=== PATIENT | male | born 1955 | race Two or more races ===

== ENCOUNTER 2019-08-13 11:12 | Emergency (ER) | payer OTHER ==
[~2019-08-13] VITALS: Ht 165.1 cm; Wt 72.6 kg
[2019-08-13] MEDS ORDERED: SODIUM CHLORIDE 0.9% 1,000 ML IV ONE (11:28)
[2019-08-13] MEDS ORDERED: ONDANSETRON HCL 4 MG/2 ML VIAL IV ONE (11:30)
[2019-08-13] MEDS ORDERED: LORazepam 2MG/ML-1ML VIAL IV ONE (11:30)
[2019-08-13 12:08] LABS: Basophils # (auto) 0 uL; Basophils % (auto) 0.5 % (0.0-2.0); Eosinophils # (auto) 0 uL; Eosinophils % (auto) 0.1 % (0.0-7.0); Hematocrit 46.9 % (41.0-53.0); Hemoglobin 16.1 g/dL (13.5-17.5); Lymphocytes # (auto) 1.2 uL; Lymphocytes % (auto) 14.9 % (10.0-50.0); Mean Corpuscular Hemoglobin 31.2 pg (28.0-32.0); Mean Corpuscular Hgb Conc. 34.3 g/dL (32.0-36.0); Mean Corpuscular Volume 91.1 fL (80.0-100.0); Monocytes # (auto) 0.5 uL; Monocytes % (auto) 6.2 % (0.0-12.0); Neutrophils # (auto) 6.1 uL; Neutrophils % (auto) 78.3 % (37.0-80.0); Nucleated Red Blood Cells % 0.1 %; Platelet Count (auto) 230 10^3/uL (140-450); Red Blood Cells 5.15 10^6/uL (4.5-5.90); Red Cell Distribution Width 13.7 % (11.8-14.3); White Blood Cell 7.7 10^3/uL (4.4-10.8)
[2019-08-13 12:19] LABS: Alanine Aminotransferase 73 U/L (16-61); Albumin 3.7 g/dL (3.4-5.0); Anion Gap 15 (5-15); Aspartate Aminotransferase 95 U/L (15-37); BUN/Creatinine Ratio 19.8; Blood Urea Nitrogen 18 mg/dL (7-18); Calcium 8.7 mg/dL (8.5-10.1); Carbon Dioxide 20 mmol/L (21-32); Chloride 102 mmol/L (98-107); GFR African American 107 mL/min; GFR Non-African American 89 mL/min; Glucose 126 mg/dL (74-106); Potassium 3.9 mmol/L (3.5-5.1); Sodium 137 mmol/L (136-145)
[2019-08-13 12:24] LABS: Alkaline Phosphatase 66 U/L (45-117); Bilirubin, Total 0.7 mg/dL (0.2-1.0); Total Protein 7.9 g/dL (6.4-8.2)
[2019-08-13 14:01] VITALS: BP 176/90
== END 2019-08-13 14:14 | disposition home or self-care (01) ==
LOC: ER 11:16
DX: F10.239 Alcohol dependence with withdrawal, unspecified (principal); R11.2 Nausea with vomiting, unspecified; Y90.0 Blood alcohol level of less than 20 mg/100 ml
CPT/HCPCS: 36415; 80053; 80320; 84484; 85025; 93005; 94761; 96361; 96374; 96375; 99284; J2060; J2405; J7030

== ENCOUNTER 2021-04-08 20:03 | Inpatient (IN) | payer OTHER ==
[2021-04-07 20:40] VITALS: BP 165/98
[~2021-04-08] VITALS: Ht 165.1 cm; Wt 78.4 kg
[2021-04-08] MEDS ORDERED: NORPTMEDS CO (20:59)
[2021-04-08 22:00] VITALS: BP 165/98
[2021-04-08] MEDS ORDERED: ONDANSETRON HCL 4 MG/2 ML VIAL IV PRN (22:45)
[2021-04-08] MEDS ORDERED: NITROGLYCERIN 0.4 MG SL TAB SL PRN (22:45)
[2021-04-08] MEDS ORDERED: MORPHINE SULF INJ 2 MG/ML SYRINGE 1ML IV PRN (22:45)
[2021-04-08] MEDS ORDERED: chlordiazePOXIDE HCL 25 MG CAP PO PRN (22:45)
[2021-04-08] MEDS ORDERED: TEMAZEPAM 15 MG CAP PO PRN (22:45)
[2021-04-08] MEDS: cloNIDine HCL 0.1 MG TAB PO PRN (22:51)
[2021-04-08 23:03] LABS: Basophils # (auto) 0 10 ^3/uL (0-0.2); Basophils % (auto) 0.4 % (0.0-2.0); Eosinophils # (auto) 0.1 10 ^3/uL (0-0.8); Eosinophils % (auto) 0.9 % (0.0-7.0); Hematocrit 38.2 % (41.0-53.0); Hemoglobin 13.3 g/dL (13.5-17.5); Lymphocytes # (auto) 1.3 10 ^3/uL (0.4-5.4); Lymphocytes % (auto) 21.2 % (10.0-50.0); Mean Corpuscular Hemoglobin 31.2 pg (28.0-32.0); Mean Corpuscular Hgb Conc. 34.9 g/dL (32.0-36.0); Mean Corpuscular Volume 89.3 fL (80.0-100.0); Monocytes # (auto) 0.5 10 ^3/uL (0-1.3); Monocytes % (auto) 8.4 % (0.0-12.0); Neutrophils # (auto) 4.1 10 ^3/uL (1.6-8.6); Neutrophils % (auto) 69.1 % (37.0-80.0); Nucleated Red Blood Cells % 0.1 %; Platelet Count (auto) 174 10^3/uL (140-450); Red Blood Cells 4.28 10^6/uL (4.5-5.90); Red Cell Distribution Width 13.6 % (11.8-14.3); White Blood Cell 5.9 10^3/uL (4.4-10.8)
[2021-04-08 23:26] LABS: Alanine Aminotransferase 38 U/L (16-61); Albumin 3.2 g/dL (3.4-5.0); Anion Gap 6 (5-15); Aspartate Aminotransferase 37 U/L (15-37); Blood Urea Nitrogen 23 mg/dL (7-18); Calcium 8.5 mg/dL (8.5-10.1); Carbon Dioxide 26 mmol/L (21-32); Chloride 106 mmol/L (98-107); GFR African American 100 mL/min; GFR Non-African American 83 mL/min; Glucose 113 mg/dL (74-106); Potassium 3.5 mmol/L (3.5-5.1); Sodium 138 mmol/L (136-145)
[2021-04-08 23:30] LABS: Alkaline Phosphatase 66 U/L (45-117); Bilirubin, Total 0.6 mg/dL (0.2-1.0); Total Protein 7.1 g/dL (6.4-8.2)
[2021-04-08 23:41] LABS: Urine Bacteria FEW /hpf (None Seen); Urine Blood 1+ /uL (Negative); Urine Mucus FEW (None Seen); Urine Specific Gravity 1.023 (1.001-1.035); Urine WBC 1 /hpf (0 - 3)
[2021-04-09 05:00] VITALS: BP 139/86
[2021-04-09 08:50] VITALS: BP 202/122
[2021-04-09] MEDS: cloNIDine HCL 0.1 MG TAB PO PRN (09:07)
[2021-04-09] MEDS ORDERED: LISINOPRIL 10 MG TAB PO SCH (10:00)
[2021-04-09] MEDS: FAMOTIDINE 20 MG TAB PO SCH ×2 (10:30→21:52)
[2021-04-09] MEDS ORDERED: amLODIPine BESYLATE 5 MG TAB PO ONE (11:00)
[2021-04-09] MEDS ORDERED: HCTZ 25 MG TAB PO ONE (11:00)
[2021-04-09] MEDS ORDERED: cloNIDine HCL 0.1 MG TAB PO ONE (11:00)
[2021-04-09 12:43] VITALS: BP 163/101
[2021-04-09] MEDS: FOLIC ACID 1 MG, MULTIPLE VITAMIN 10 ML, MAGNESIUM SULF SDV 50% 8 MEQ, THIAMINE INJ 100... INJ SCH ×5 (14:21)
[2021-04-09 14:28] VITALS: BP 141/84
[2021-04-09 17:00] VITALS: BP 153/84
[2021-04-09] MEDS ORDERED: PANTOPRAZOLE 40 MG TAB PO ONE (19:30)
[2021-04-09] MEDS: SUCRALFATE 1 GM TAB PO SCH (21:52)
[2021-04-09 22:00] VITALS: BP 143/83
[2021-04-10 05:00] VITALS: BP 146/82
[2021-04-10] MEDS: SUCRALFATE 1 GM TAB PO SCH ×2 (06:13→15:10)
[2021-04-10 07:12] LABS: Basophils # (auto) 0 10 ^3/uL (0-0.2); Basophils % (auto) 0.2 % (0.0-2.0); Eosinophils # (auto) 0.1 10 ^3/uL (0-0.8); Eosinophils % (auto) 0.9 % (0.0-7.0); Hematocrit 38.4 % (41.0-53.0); Hemoglobin 13.2 g/dL (13.5-17.5); Lymphocytes # (auto) 1.4 10 ^3/uL (0.4-5.4); Lymphocytes % (auto) 24.3 % (10.0-50.0); Mean Corpuscular Hemoglobin 30.8 pg (28.0-32.0); Mean Corpuscular Hgb Conc. 34.4 g/dL (32.0-36.0); Mean Corpuscular Volume 89.5 fL (80.0-100.0); Monocytes # (auto) 0.6 10 ^3/uL (0-1.3); Monocytes % (auto) 9.8 % (0.0-12.0); Neutrophils # (auto) 3.8 10 ^3/uL (1.6-8.6); Neutrophils % (auto) 64.8 % (37.0-80.0); Nucleated Red Blood Cells % 0.1 %; Platelet Count (auto) 170 10^3/uL (140-450); Red Blood Cells 4.29 10^6/uL (4.5-5.90); Red Cell Distribution Width 13.6 % (11.8-14.3); White Blood Cell 5.9 10^3/uL (4.4-10.8)
[2021-04-10 07:25] LABS: Albumin 3.1 g/dL (3.4-5.0); Calcium 8.5 mg/dL (8.5-10.1); Potassium 3.6 mmol/L (3.5-5.1)
[2021-04-10 07:28] LABS: BUN/Creatinine Ratio 19.1; Bilirubin, Total 0.5 mg/dL (0.2-1.0); Total Protein 6.9 g/dL (6.4-8.2)
[2021-04-10 08:40] VITALS: BP 161/104
[2021-04-10 09:00] VITALS: BP 161/100
[2021-04-10] MEDS: FAMOTIDINE 20 MG TAB PO SCH (09:18)
[2021-04-10] MEDS ORDERED: PANTOPRAZOLE 40 MG TAB PO SCH (10:00)
[2021-04-10] MEDS ORDERED: LISINOPRIL 20 MG TAB PO SCH (10:00)
[2021-04-10] MEDS ORDERED: HCTZ 25 MG TAB PO SCH (10:00)
[2021-04-10] MEDS ORDERED: LISI20TA28 PO (11:31)
[2021-04-10] MEDS ORDERED: HYDR12.55 PO (11:32)
[2021-04-10] MEDS ORDERED: AMLO-489 PO (11:33)
[2021-04-10] MEDS: FOLIC ACID 1 MG, MULTIPLE VITAMIN 10 ML, MAGNESIUM SULF SDV 50% 8 MEQ, THIAMINE INJ 100... INJ SCH ×5 (12:00)
[2021-04-10] MEDS ORDERED: THIA100T5 PO (12:11)
[2021-04-10 12:30] VITALS: BP 157/102
[2021-04-10 16:05] VITALS: BP 150/98
== END 2021-04-10 16:45 | disposition home or self-care (01) | DRG 305 ==
LOC: TELE-WESTW 20:35 → INTOOBSV 20:35 → OBSVTOIN 04-09 17:18
PROVIDERS: ADMIT Nurse Practitioner; ATTEND Internal Medicine Nephrology
DX: I16.0 Hypertensive urgency (principal); F10.239 Alcohol dependence with withdrawal, unspecified; E44.0 Moderate protein-calorie malnutrition; I10 Essential (primary) hypertension; I49.9 Cardiac arrhythmia, unspecified; F41.9 Anxiety disorder, unspecified; Z20.822 Contact with and (suspected) exposure to COVID-19; Z68.27 Body mass index [BMI] 27.0-27.9, adult
CPT/HCPCS: 36415; 80053; 81001; 84484; 85025; 87081; 87426; G0378

== ENCOUNTER 2021-05-12 22:52 | Inpatient (IN) | payer OTHER ==
[~2021-05-12] VITALS: Ht 172.7 cm; Wt 72.7 kg
[~2021-05-12 22:52] MED LIST: AMLO-489 PO; HYDR12.55 PO; LISI20TA28 PO; NORPTMEDS CO
[2021-05-13 00:35] LABS: Basophils # (auto) 0 10 ^3/uL (0-0.2); Basophils % (auto) 0.2 % (0.0-2.0); Eosinophils # (auto) 0 10 ^3/uL (0-0.8); Hematocrit 48.1 % (41.0-53.0); Hemoglobin 16.3 g/dL (13.5-17.5); Lymphocytes # (auto) 1.8 10 ^3/uL (0.4-5.4); Lymphocytes % (auto) 23.6 % (10.0-50.0); Mean Corpuscular Hemoglobin 30.7 pg (28.0-32.0); Mean Corpuscular Volume 90.3 fL (80.0-100.0); Monocytes # (auto) 0.4 10 ^3/uL (0-1.3); Monocytes % (auto) 5.1 % (0.0-12.0); Neutrophils # (auto) 5.4 10 ^3/uL (1.6-8.6); Neutrophils % (auto) 71.1 % (37.0-80.0); Nucleated Red Blood Cells % 0.2 %; Red Blood Cells 5.32 10^6/uL (4.5-5.90); Red Cell Distribution Width 14.2 % (11.8-14.3); White Blood Cell 7.6 10^3/uL (4.4-10.8)
[2021-05-13 00:54] LABS: Chloride 98 mmol/L (98-107); Potassium 4.7 mmol/L (3.5-5.1); Sodium 133 mmol/L (136-145)
[2021-05-13 00:58] LABS: Alanine Aminotransferase 40 U/L (16-61); Anion Gap 21 (5-15); Aspartate Aminotransferase 41 U/L (15-37); BUN/Creatinine Ratio 13.9; Blood Urea Nitrogen 15 mg/dL (7-18); Calcium 8.6 mg/dL (8.5-10.1); Carbon Dioxide 14 mmol/L (21-32); GFR African American 87 mL/min; GFR Non-African American 72 mL/min; Glucose 76 mg/dL (74-106)
[2021-05-13 01:02] LABS: Alkaline Phosphatase 75 U/L (45-117); Bilirubin, Total 0.6 mg/dL (0.2-1.0); Total Protein 8.5 g/dL (6.4-8.2)
[2021-05-13] MEDS ORDERED: LORazepam 2MG/ML-1ML VIAL IV ONE (03:00)
[2021-05-13] MEDS ORDERED: FAMOTIDINE (10MG/ML) 2ML VL IV ONE (03:00)
[2021-05-13] MEDS ORDERED: ONDANSETRON HCL 4 MG/2 ML VIAL IV ONE (03:30)
[2021-05-13] MEDS ORDERED: MORPHINE SULF INJ 2 MG/ML SYRINGE 1ML IV PRN (05:30)
[2021-05-13] MEDS ORDERED: TEMAZEPAM 15 MG CAP PO PRN (05:30)
[2021-05-13] MEDS ORDERED: NITROGLYCERIN 0.4 MG SL TAB SL PRN (05:30)
[2021-05-13] MEDS ORDERED: ONDANSETRON HCL 4 MG/2 ML VIAL IV PRN (05:30)
[2021-05-13] MEDS: chlordiazePOXIDE HCL 25 MG CAP PO PRN ×3 (06:11→22:49)
[2021-05-13] MEDS ORDERED: AMMONIA 0.33 ML INHALANT IN ONE (11:26)
[2021-05-13] MEDS: FOLIC ACID 1 MG, MULTIPLE VITAMIN 10 ML, MAGNESIUM SULF SDV 50% 8 MEQ, THIAMINE INJ 100... INJ SCH ×5 (12:00)
[2021-05-13] MEDS: LISINOPRIL 10 MG TAB PO SCH (13:30)
[2021-05-13] MEDS: HCTZ 25 MG TAB PO SCH (13:30)
[2021-05-13] MEDS: PANTOPRAZOLE 40 MG TAB PO SCH (13:30)
[2021-05-13] MEDS: amLODIPine BESYLATE 5 MG TAB PO SCH (13:30)
[2021-05-13] MEDS ORDERED: MULT-1018 PO (14:46)
[2021-05-13] MEDS ORDERED: UBIQ100C6 PO (14:46)
[2021-05-13 14:57] VITALS: BP 155/82
[2021-05-13 17:00] VITALS: BP 140/89
[2021-05-13] MEDS: cloNIDine HCL 0.1 MG TAB PO PRN (21:59)
[2021-05-13 22:00] VITALS: BP 154/88
[2021-05-14 05:00] VITALS: BP 155/87
[2021-05-14 06:25] LABS: Basophils # (auto) 0 10 ^3/uL (0-0.2); Basophils % (auto) 0.2 % (0.0-2.0); Eosinophils # (auto) 0 10 ^3/uL (0-0.8); Eosinophils % (auto) 0.6 % (0.0-7.0); Hematocrit 38.8 % (41.0-53.0); Hemoglobin 13.6 g/dL (13.5-17.5); Lymphocytes # (auto) 1.3 10 ^3/uL (0.4-5.4); Lymphocytes % (auto) 22.7 % (10.0-50.0); Mean Corpuscular Hemoglobin 31.8 pg (28.0-32.0); Mean Corpuscular Hgb Conc. 35.1 g/dL (32.0-36.0); Mean Corpuscular Volume 90.5 fL (80.0-100.0); Monocytes # (auto) 0.5 10 ^3/uL (0-1.3); Monocytes % (auto) 8.8 % (0.0-12.0); Neutrophils # (auto) 3.8 10 ^3/uL (1.6-8.6); Neutrophils % (auto) 67.7 % (37.0-80.0); Red Blood Cells 4.29 10^6/uL (4.5-5.90); Red Cell Distribution Width 14.2 % (11.8-14.3); White Blood Cell 5.6 10^3/uL (4.4-10.8)
[2021-05-14] MEDS: chlordiazePOXIDE HCL 25 MG CAP PO PRN (06:34)
[2021-05-14] MEDS: cloNIDine HCL 0.1 MG TAB PO PRN ×2 (06:34→13:54)
[2021-05-14 07:19] LABS: BUN/Creatinine Ratio 26.2; Potassium 3.5 mmol/L (3.5-5.1)
[2021-05-14 09:00] VITALS: BP 133/85
[2021-05-14] MEDS: LISINOPRIL 10 MG TAB PO SCH (10:00)
[2021-05-14] MEDS: HCTZ 25 MG TAB PO SCH (10:00)
[2021-05-14] MEDS: amLODIPine BESYLATE 5 MG TAB PO SCH (10:00)
[2021-05-14] MEDS: PANTOPRAZOLE 40 MG TAB PO SCH (10:16)
[2021-05-14] MEDS: FOLIC ACID 1 MG, MULTIPLE VITAMIN 10 ML, MAGNESIUM SULF SDV 50% 8 MEQ, THIAMINE INJ 100... INJ SCH ×5 (12:00)
[2021-05-14 13:00] VITALS: BP 139/89
== END 2021-05-14 18:50 | disposition home or self-care (01) | DRG 897 ==
LOC: ER 22:52 → TELE 05-13 05:22 → TELE-WESTW 05-13 14:40
PROVIDERS: ADMIT Nurse Practitioner; ATTEND Internal Medicine
DX: F10.231 Alcohol dependence with withdrawal delirium (principal); R91.8 Other nonspecific abnormal finding of lung field; I10 Essential (primary) hypertension; F41.9 Anxiety disorder, unspecified; Z20.822 Contact with and (suspected) exposure to COVID-19; Z91.19 Patient's noncompliance with other medical treatment and regimen; Z82.49 Family history of ischemic heart disease and other diseases of the circulatory system; Z83.3 Family history of diabetes mellitus; Z71.41 Alcohol abuse counseling and surveillance of alcoholic
CPT/HCPCS: 36415; 71250; 80048; 80053; 83880; 84484; 85025; 87426; 93005; 96365; 96366; 96375; G0378; J2405; J3490

== ENCOUNTER 2022-09-24 16:06 | Inpatient (IN) | payer OTHER ==
[~2022-09-24] VITALS: Ht 165.1 cm; Wt 73.7 kg
[~2022-09-24 16:06] MED LIST changes: -AMLO-489 PO; -HYDR12.55 PO; -LISI20TA28 PO; +MULT-1018 PO; -NORPTMEDS CO; +UBIQ100C6 PO
[2022-09-24 17:31] LABS: Basophils # (auto) 0.2 10 ^3/uL (0-0.2); Basophils % (auto) 2.2 % (0.0-2.0); Eosinophils # (auto) 0 10 ^3/uL (0-0.8); Eosinophils % (auto) 0.5 % (0.0-7.0); Hematocrit 42.8 % (41.0-53.0); Hemoglobin 14.6 g/dL (13.5-17.5); Lymphocytes # (auto) 0.7 10 ^3/uL (0.4-5.4); Lymphocytes % (auto) 7.7 % (10.0-50.0); Mean Corpuscular Hemoglobin 30.2 pg (28.0-32.0); Mean Corpuscular Volume 88.6 fL (80.0-100.0); Monocytes # (auto) 0.6 10 ^3/uL (0-1.3); Monocytes % (auto) 6.3 % (0.0-12.0); Neutrophils # (auto) 7.9 10 ^3/uL (1.6-8.6); Neutrophils % (auto) 83.3 % (37.0-80.0); Nucleated Red Blood Cells % 0.1 %; Red Blood Cells 4.83 10^6/uL (4.5-5.90); Red Cell Distribution Width 13.7 % (11.8-14.3); White Blood Cell 9.5 10^3/uL (4.4-10.8)
[2022-09-24 17:55] LABS: Albumin 3.9 g/dL (3.4-5.0); BUN/Creatinine Ratio 20.9; Potassium 4.9 mmol/L (3.5-5.1); Total Protein 7.6 g/dL (6.4-8.2)
[2022-09-24 17:56] LABS: Bilirubin, Total 1.4 mg/dL (0.2-1.0)
[2022-09-24] MEDS ORDERED: FAMOTIDINE (10MG/ML) 2ML VL IV ONE (18:00)
[2022-09-24] MEDS ORDERED: LORazepam 2MG/ML-1ML VIAL IV ONE ×2 (18:00→20:00)
[2022-09-24] MEDS ORDERED: SODIUM CHLORIDE 0.9% 1,000 ML IV ONE (18:00)
[2022-09-24 19:10] LABS: Blood Alcohol < 3.0 mg/dL (0-5); Lipase 132 U/L (73-393); Magnesium 2.7 mg/dL (1.6-2.6); Phosphorus 1.6 mg/dL (2.5-4.90)
[2022-09-24] MEDS: FOLIC ACID 1 MG, MULTIPLE VITAMIN 10 ML, MAGNESIUM SULF SDV 50% 8 MEQ, THIAMINE INJ 100... INJ SCH ×5 (21:36)
[2022-09-24 21:54] LABS: Urine WBC None Seen /hpf (0 - 3)
[2022-09-24] MEDS ORDERED: HYDROcodone-ACET 5/325MG TAB PO PRN (22:00)
[2022-09-24] MEDS ORDERED: DEXTROSE (50%) 50ML SYRG IV PRN (22:00)
[2022-09-24] MEDS ORDERED: ONDANSETRON HCL 4 MG/2 ML VIAL IV PRN (22:00)
[2022-09-24] MEDS ORDERED: DOCUSATE SOD 100 MG CAP PO PRN (22:00)
[2022-09-24] MEDS ORDERED: ACETAMINOPHEN 325 MG TAB PO PRN (22:00)
[2022-09-24] MEDS ORDERED: IOHEXOL 300 MG/ML 100ML BOTTLE IJ ONE (22:06)
[2022-09-24 22:16] LABS: Urine Bacteria FEW /hpf (None Seen); Urine Blood 1+ /uL (Negative); Urine Specific Gravity 1.008 (1.001-1.035)
[2022-09-24 22:45] LABS: Amphetamine Screen, Urine NEGATIVE (NEGATIVE); Barbiturate Scree,Urine NEGATIVE (NEGATIVE); Benzodiazephine Screen, Urine NEGATIVE (NEGATIVE); Cannabinoid Screen, Urine NEGATIVE (NEGATIVE); Cocaine Screen, Urine NEGATIVE (NEGATIVE); Opiate Scree,Urine NEGATIVE (NEGATIVE); Phencyclidine Screen, Urine NEGATIVE (NEGATIVE)
[2022-09-24] MEDS ORDERED: NITROGLYCERIN 0.4 MG SL TAB SL PRN (23:15)
[2022-09-24] MEDS ORDERED: MORPHINE SULFATE INJ 2 MG/ml SYRG IV PRN (23:15)
[2022-09-24] MEDS: ACCU-CHEK COMFORT CURVE STRIP VI SCH (23:41)
[2022-09-24] MEDS: InsuLIN REG 1unit/0.01ml Soln (100units/ml) SC SCH (23:44)
[2022-09-25] MEDS: hydrALAZINE HCL 20 MG/ML VL IV PRN ×2 (01:54→15:55)
[2022-09-25 06:40] LABS: Basophils # (auto) 0 10 ^3/uL (0-0.2); Basophils % (auto) 0.7 % (0.0-2.0); Eosinophils # (auto) 0 10 ^3/uL (0-0.8); Eosinophils % (auto) 0.1 % (0.0-7.0); Hematocrit 41.4 % (41.0-53.0); Hemoglobin 13.8 g/dL (13.5-17.5); Lymphocytes # (auto) 1.3 10 ^3/uL (0.4-5.4); Lymphocytes % (auto) 20.3 % (10.0-50.0); Mean Corpuscular Hemoglobin 29.8 pg (28.0-32.0); Mean Corpuscular Hgb Conc. 33.3 g/dL (32.0-36.0); Mean Corpuscular Volume 89.6 fL (80.0-100.0); Monocytes # (auto) 0.6 10 ^3/uL (0-1.3); Monocytes % (auto) 8.8 % (0.0-12.0); Neutrophils # (auto) 4.5 10 ^3/uL (1.6-8.6); Neutrophils % (auto) 70.1 % (37.0-80.0); Red Blood Cells 4.62 10^6/uL (4.5-5.90); Red Cell Distribution Width 13.7 % (11.8-14.3); White Blood Cell 6.4 10^3/uL (4.4-10.8)
[2022-09-25 07:08] LABS: Potassium 4.4 mmol/L (3.5-5.1)
[2022-09-25 07:15] LABS: Albumin 3.5 g/dL (3.4-5.0); BUN/Creatinine Ratio 19.2; Bilirubin, Total 1.5 mg/dL (0.2-1.0); Calcium 9.3 mg/dL (8.5-10.1); Total Protein 6.9 g/dL (6.4-8.2)
[2022-09-25] MEDS: InsuLIN REG 1unit/0.01ml Soln (100units/ml) SC SCH ×4 (08:15→22:00)
[2022-09-25] MEDS: ACCU-CHEK COMFORT CURVE STRIP VI SCH ×4 (08:15→22:01)
[2022-09-25] MEDS: FAMOTIDINE (10MG/ML) 2ML VL IV SCH ×2 (10:20→21:54)
[2022-09-25] MEDS: LORazepam 2MG/ML-1ML VIAL IV PRN ×2 (10:21→16:37)
[2022-09-25] MEDS ORDERED: FOLIC ACID 1 MG, MULTIPLE VITAMIN 10 ML, MAGNESIUM SULF SDV 50% 8 MEQ, THIAMINE INJ 100... INJ SCH ×5 (12:00)
[2022-09-25] MEDS: FOLIC ACID 1 MG, MULTIPLE VITAMIN 10 ML, MAGNESIUM SULF SDV 50% 8 MEQ, THIAMINE INJ 100... INJ SCH ×5 (13:24)
[2022-09-25] MEDS: GABAPENTIN 300 MG CAP PO SCH (21:54)
[2022-09-25 22:00] VITALS: BP 158/79
[2022-09-26 04:55] VITALS: BP 167/99
[2022-09-26] MEDS: ACCU-CHEK COMFORT CURVE STRIP VI SCH ×2 (06:22→11:30)
[2022-09-26] MEDS: InsuLIN REG 1unit/0.01ml Soln (100units/ml) SC SCH ×2 (06:22→11:30)
[2022-09-26] MEDS: GABAPENTIN 300 MG CAP PO SCH ×2 (06:22→14:00)
[2022-09-26 08:44] VITALS: BP 155/98
[2022-09-26] MEDS: FAMOTIDINE (10MG/ML) 2ML VL IV SCH (09:25)
[2022-09-26] MEDS: FOLIC ACID 1 MG, MULTIPLE VITAMIN 10 ML, MAGNESIUM SULF SDV 50% 8 MEQ, THIAMINE INJ 100... INJ SCH ×5 (12:00)
[2022-09-26 15:38] VITALS: BP 168/88
== END 2022-09-26 16:19 | disposition home or self-care (01) | DRG 897 ==
LOC: ER 16:06 → TELE 23:04 → TELE-WESTW 09-25 17:10
PROVIDERS: ADMIT Nurse Practitioner Family; ATTEND Nurse Practitioner Family
DX: F10.239 Alcohol dependence with withdrawal, unspecified (principal); E87.1 Hypo-osmolality and hyponatremia; E83.39 Other disorders of phosphorus metabolism; I10 Essential (primary) hypertension; Z83.3 Family history of diabetes mellitus; R73.9 Hyperglycemia, unspecified; Z20.822 Contact with and (suspected) exposure to COVID-19
CPT/HCPCS: 36415; 71045; 71260; 80053; 80307; 80320; 81001; 82962; 83690; 83735; 84100; 84484; 85025; 87426; 93005; 96361; 96374; 96375; G0378; J1815; J2405; J3490